=== PATIENT | female | born 1970 | race Caucasian/White ===

== ENCOUNTER 2019-02-23 02:27 | Inpatient (IN) | payer MEDICAID ==
[~2019-02-23] VITALS: Ht 162.6 cm; Wt 51.7 kg
[2019-02-23 02:32] VITALS: BP 132/74
--- NOTE | 2019-02-23 02:48 | NUR ---
48/F PRESENTS TO ED, C/O RASH ON DORSAL ASPECT OF BL HANDS, X2 WEEKS. PT REPORTS FATIGUE, INSOMNIA AND DIZZINESS. REPORTS RESOLVED ITCHING. STATED SHE WAS GARDENING WITH GLOVES ON 2 DAYS PRIOR TO ONSET OF S/S. REPORTS RESOLVED ITCHING. AOX4, GCS 15, SKIN NORMAL WARM AND DRY, RR EVEN AND UNLABORED.
[2019-02-23 03:12] LABS: BASOPHILS # (AUTO) 0.1 K/uL (0.00-0.22); BASOPHILS % (AUTO) 1.9 % (0.0-2.0); EOSINOPHILS # (AUTO) 0.1 K/uL (0-0.4); EOSINOPHILS % (AUTO) 1.9 % (0.0-4.0); HEMATOCRIT 21.1 % (36-48); LYMPHOCYTES # (AUTO) 1.8 K/uL (2.5-16.5); LYMPHOCYTES % (AUTO) 30.7 % (20.5-51.1); MEAN CORPUSCULAR HEMOGLOBIN 15 pg (27-31); MEAN CORPUSCULAR HGB CONC 30 g/dL (33-37); MONOCYTES # (AUTO) 0.5 K/uL (0.8-1.0); MONOCYTES % (AUTO) 8.9 % (1.7-9.3); NEUTROPHILS # (AUTO) 3.4 K/uL (1.8-7.7); NEUTROPHILS % (AUTO) 56.6 % (42.2-75.2); PLATELET COUNT (AUTO) 391 K/uL (140-450); RED BLOOD CELL COUNT(AUTO) 4.26 MIL/uL (4.20-5.40); RED CELL DISTRIBUTION WIDTH 19.4 % (11.6-13.7)
[2019-02-23 03:21] LABS: ANION GAP 9.1 (8-16); CARBON DIOXIDE 28.4 mmol/L (21-32); CREATININE 0.7 mg/dL (0.6-1.3); POTASSIUM 3.5 mmol/L (3.5-5.1)
[2019-02-23 03:27] LABS: ALBUMIN 3.3 g/dL (3.4-5.0); TOTAL BILIRUBIN 0.6 mg/dL (0.0-1.0)
[2019-02-23 03:36] LABS: HEMOGLOBIN 6.3 g/dL (12.0-16.0); MEAN CORPUSCULAR VOLUME 49.6 fL (80-94)
[2019-02-23 03:48] LABS: APPEARANCE,URINE CLEAR (CLEAR); BILIRUBIN,URINE NEGATIVE (NEGATIVE); BLOOD, URINE NEGATIVE (NEGATIVE); COLOR,URINE YELLOW (YELLOW); LEUKOCYTE ESTERASE ,URINE NEGATIVE (NEGATIVE); NITRITE, URINE NEGATIVE (NEGATIVE); UGLUCOSE NEGATIVE (NEGATIVE)
--- NOTE | 2019-02-23 03:50 | NUR ---
PT LAYING IN BED, RR EVEN AND UNLABORED. ALL NEEDS MET AT THIS TIME.
[2019-02-23 03:56] LABS: BARBITURATE, URINE NEG. ng/ml (NEG <=200); BENZODIAZEPINE, URINE NEG. ng/mL (NEG <=200); CANNABINOID, URINE POS. ng/mL (NEG <=50); COCAINE, URINE NEG. ng/mL (NEG <=300); OPIATE, URINE NEG. ng/mL (NEG <=2000); PHENCYCLIDINE SCREEN,URINE NEG. ng/mL (NEG <=25)
[2019-02-23 03:59] LABS: PROTHROMBIN TIME 10.6 secs (10.8-13.4)
--- NOTE | 2019-02-23 04:00 | NUR ---
ATTEMPTED TO INSERT IV, UNSUCCESSFUL AFTER 3 ATTEMPTS, NOTIFIED PIPING DESIGN SPECIALIST.
[2019-02-23 04:02] LABS: RBC,URINE 0-5 /HPF (0-5); WBC,URINE 0-5 /HPF (0-5)
--- NOTE | 2019-02-23 04:40 | NUR ---
Patient will be admitted to care of DR. MEHTA. Admited to TELE. Will go to room 120B. Belongings list completed. Report to ANDRESSA DOBSON.
[2019-02-23 04:45] VITALS: BP 130/83
--- NOTE | 2019-02-23 04:45 | NUR ---
RECEIVED PT FROM ED NURSE AT BEDSIDE. PT IN STABLE CONDITION. AAOX4. AMBULATE TO BED. NO S/S OF SOB OR ANY RESPIRATORY DISTRESS NOTED. SKIN INTACT, WARM AND DRY. RASH ON BOTH HAND DORSAL NOTED. MRSA COLLECTED. IV LAC 20G. SITE INTACT. HGB LEVEL 6.3, HCT LEVEL 21.1. CONSENT SIGNED AT ED, WAITING ORDER FOR BLOOD. ORIENT ROOM TO PT. BED IN LOW POSITION. CALL DAVILA IN REACH. WILL CONTINUE TO MONITOR.
[2019-02-23] MEDS ORDERED: ZOLPIDEM 5 MG TAB PO PRN (04:55)
[2019-02-23] MEDS ORDERED: LORazepam 2 MG/ML VIAL IM/IVP PRN (04:55)
[2019-02-23] MEDS ORDERED: HYDROcodone/APAP 5/325 MG 1 TAB TAB PO PRN (04:55)
[2019-02-23] MEDS ORDERED: ACETAMINOPHEN 325 MG TAB PO PRN (04:55)
[2019-02-23] MEDS ORDERED: ONDANSETRON 4 MG/2 ML VIAL IM/IVP PRN (04:55)
[2019-02-23] MEDS ORDERED: DOCUSATE SODIUM 100 MG GELCAP PO PRN (04:55)
[2019-02-23] MEDS: NACL 0.9% 1,000 ML IV SCH (05:34)
--- NOTE | 2019-02-23 05:37 | NUR ---
SOLU MEDROL GIVEN IVP. PT TOLERATED WELL.
[2019-02-23] MEDS ORDERED: methylPREDNISolone SS 125 MG/2 ML VIAL IVP SCH (06:00)
--- NOTE | 2019-02-23 06:10 | NUR ---
PRIME THE Y TUBING, BLOOD BANK CALLED TO INFORM US BLOOD IS READY. PICKED UP BLOOD.
--- NOTE | 2019-02-23 06:20 | NUR ---
STARTED BLOOD TRANSFUSION. INITIAL VITAL SIGN TAKEN. 0/10 PAIN. PT TOLERATED WELL. WILL CONTINUE TO MONITOR.
[2019-02-23 06:30] LABS: MAGNESIUM 1.9 mg/dL (1.8-2.4); PHOSPHORUS 2.9 mg/dL (2.5-4.9); THYROID STIMULATING HORMONE 2.42 uIU/mL (0.34-3.74)
--- NOTE | 2019-02-23 06:45 | NUR ---
NO ADVERSE REACTION TO BLOOD. VS STABLE. BLOOD RATE INCREASED TO 100MLS/HR. WILL CONTINUE TO MONITOR.
--- NOTE | 2019-02-23 07:28 | NUR ---
BEDSIDE REPORT GIVEN TO DAY SHIFT NURSE. PT IN STABLE CONDITION.
--- NOTE | 2019-02-23 07:29 | NUR ---
RECEIVED REPORT AT BEDSIDE FROM CROSSCUTTER ROLLED GLASS NURSE RAMÍREZ FOR CONTINUITY OF CARE. PT IN STABLE CONDITION. RESPIRATIONS EVEN AND UNLABORED, ROOM AIR. IV INTACT AND PATENT. 1 UNIT BLOOD TRANSFUSING AT THIS TIME, STARTED AT 0620 PER CROSSCUTTER ROLLED GLASS NURSE RAMÍREZ. SAFETY MEASURES IN PLACE. BED IN LOW POSITION. CALL LIGHT AT BEDSIDE. WILL CONTINUE TO MONITOR.
--- NOTE | 2019-02-23 07:40 | NUR ---
ASSISTED PT TO RESTROOM TO URINATE. PT TOLERATED WELL. NO INTERRUPTION OF BLOOD TRANSFUSING. PT IN STABLE CONDITION.
[2019-02-23 08:00] VITALS: BP 140/91
--- NOTE | 2019-02-23 08:21 | NUR ---
PATIENT HAS BEEN SCREENED AND CATEGORIZED HIGH NUTRITION RISK. PATIENT WILL BE SEEN WITHIN 1-2 DAYS OF ADMISSION. 02/23/19-02/24/[address]
[2019-02-23] MEDS ORDERED: SODIUM FERRIC GLUCONATE 125 MG in NACL 0.9% 100 ML IV SCH (09:00)
--- NOTE | 2019-02-23 09:00 | NUR ---
SODIUM FERRIC GLUCONATE 125MG HELD DUE TO BLOOD TRANSFUSING AT THIS TIME.
--- NOTE | 2019-02-23 09:45 | NUR ---
1ST UNIT PACKED RBC COMPLETED AT 0945. PT IN STABLE CONDITION.
--- NOTE | 2019-02-23 10:50 | NUR ---
2ND UNIT BLOOD STARTED AT 1050. PT IN STABLE CONDITION.
--- NOTE | 2019-02-23 11:05 | NUR ---
NO ADVERSE REACTION TO BLOOD. VS STABLE. BLOOD RATE INCREASED TO 100MLS/HR. WILL CONTINUE TO MONITOR.
[2019-02-23 12:00] VITALS: BP 128/80
[2019-02-23] MEDS ORDERED: fentaNYL 0.05 MG/ML VIAL ONE (12:24)
[2019-02-23] MEDS ORDERED: MIDAZOLAM 2 MG/2 ML VIAL ONE (12:24)
[2019-02-23] MEDS ORDERED: diphenhydrAMINE 50 MG/ML VIAL ONE (12:25)
--- NOTE | 2019-02-23 13:25 | NUR ---
OFF UNIT FOR EGD PROCEDURE. BLOOD TRANSFUSING AT THIS TIME. PT IN STABLE CONDITION.
[2019-02-23] MEDS: MIDAZOLAM 2 MG/2 ML VIAL IVP SCH ×2 (13:56→15:15)
[2019-02-23] MEDS: fentaNYL 0.05 MG/ML VIAL IVP SCH ×2 (13:57→15:15)
--- NOTE | 2019-02-23 14:00 | NUR ---
02/23/19 RD INITIAL ASSESSMENT COMPLETED PLEASE REFER TO NUTRITION ASSESSMENT UNDER CARE ACTIVITY FOR ESTIMATED NUTRITIONAL NEEDS. 1. CONTINUE NPO MEDICALLY NECESSARY 2. RECOMMEND REGULAR DIET WITH FOOD TEXTURE SUGGESTED BY SWALLOW EVALUATION WHEN PT IS STABLE TO RECEIVE NUTRITION. 3. RECOMMEND ENSURE BID 4. INCREASE CALORIES AND PROTEIN DIET EDUCATION WAS PROVIDED. 5. RD TO FOLLOW-UP 3-5 DAYS, MODERATE RISK PEBBLES [address]
--- NOTE | 2019-02-23 14:35 | NUR ---
PPT BACK ON UNIT AFTER EGD PROCEDURE. PT IN STABLE CONDITION. VITALS: B/P 113/71 P 83 97% T 97.6 R 18
[2019-02-23 16:00] VITALS: BP 134/79
[2019-02-23 16:39] LABS: BASOPHILS % (AUTO) 1.3 % (0.0-2.0); HEMATOCRIT 31.9 % (36-48); HEMOGLOBIN 9.7 g/dL (12.0-16.0); LYMPHOCYTES # (AUTO) 0.8 K/uL (2.5-16.5); LYMPHOCYTES % (AUTO) 23.4 % (20.5-51.1); MEAN CORPUSCULAR HEMOGLOBIN 18 pg (27-31); MEAN CORPUSCULAR HGB CONC 30 g/dL (33-37); MEAN CORPUSCULAR VOLUME 58.1 fL (80-94); MONOCYTES # (AUTO) 0.1 K/uL (0.8-1.0); MONOCYTES % (AUTO) 2.1 % (1.7-9.3); NEUTROPHILS # (AUTO) 2.6 K/uL (1.8-7.7); NEUTROPHILS % (AUTO) 73.2 % (42.2-75.2); PLATELET COUNT (AUTO) 407 K/uL (140-450); RED BLOOD CELL COUNT(AUTO) 5.49 MIL/uL (4.20-5.40); RED CELL DISTRIBUTION WIDTH 30.1 % (11.6-13.7); WHITE BLOOD COUNT (AUTO) 3.5 K/uL (4.8-10.8)
--- NOTE | 2019-02-23 17:00 | NUR ---
PT SLEEPING IN STABLE CONDITION. RESPIRATIONS EVEN AND UNLABORED. BED IN LOW POSITION. BED ALARM ON. WILL CONTINUE TO MONITOR.
--- NOTE | 2019-02-23 18:30 | NUR ---
PT DROWSY AT THIS TIME. PT VERBALIZED NOT BEING ABLE TO STAND FOR BARIUM TEST AT THIS TIME. DR. AL AWARE STATING TO HAVE TEST PERFORMED FIRST THING IN THE MORNING.
--- NOTE | 2019-02-23 19:17 | NUR ---
* ST NOTE * Pt seen at bedside w/partner & nsg present. Pt asleep upon entering room. Upon awakening, pt alert and cooperative, but lethargic, reporting no c/o pain at this time. Pt consenting to evaluation w/partner present. Bedside dysphagia and oral mechanism exams completed. See evaluation report for further details. Pt tolerating 2/2 alternating PO trials of puree apple sauce 1-3 CCs at a time via a spoon, 4/4 alternating PO trials of thin liquid apple juice via a straw, as well as 2/2 alternating PO trials of mech-soft chopped fruit via a spoon, all w/o s/s of aspiration or choking. Pt presenting with fear during PO intake because pt s/p esophagram. Pt and caregiver/partner education completed re: aspiration precautions and safe swallow compensatory strategies pt and caregivers could utilize to aid pt w/swallow function, w/pt and caregiver/partner verbalizing understanding and agreement w/clinician's recommendations. It is thus recommended pt's PO diet consistency be modified to mechanical soft-GROUND textures w/thin liquids for all meals, w/strict aspiration precautions in place. No further ST follow up recommended at this time. Pt, caregiver/partner, and Nsg Angeles education completed re: results of evaluation; benefits of abiding by aspiration precautions and recommended PO diet consistency; and prognosis for improvement; with pt, caregiver/partner & Nsg Angeles verbalizing understanding and agreement w/clinician's recommendations. Recommend: - PO DIET CONSISTENCY OF MECHANICAL SOFT-GROUND TEXTURES W/THIN LIQUIDS for all meals - WHOLE PILL MEDICATION ADMINISTRATION OR CRUSHED IN GROUND OR THIN LIQUID TEXTURES - Maintain STRICT ASPIRATION PRECAUTIONS DURING PT'S PO INTAKE - CUE/REMIND PT TO SIT UP AT 80-90 DEGREE ANGLE DURING PO INTAKE; EAT/DRINK SLOWLY; ALTERNATE BTWN SOLIDS & LIQUIDS; AND TAKE SMALL BITES/SIPS - Pt's PO diet consistency may be upgraded to mechanical soft textures w/thin liquids as tolerated No further ST follow up recommended at this time. NOMS Level 3
--- NOTE | 2019-02-23 19:25 | NUR ---
GAVE REPORT TO DARRYL DELINQUENT TAX COLLECTOR NURSE FOR CONTINUITY OF CARE. PT IN STABLE CONDITION.
--- NOTE | 2019-02-23 19:25 | NUR ---
RECEIVED REPORT FROM BRO RN DAYSHIFT NURSE AT BEDSIDE FOR CONTINUITY OF CARE, PT IN STABLE CONDITION.
[2019-02-23] MEDS: SODIUM FERRIC GLUCONATE 125 MG in NACL 0.9% 100 ML IV SCH (19:52)
[2019-02-23 20:00] VITALS: BP 134/86
[2019-02-23] MEDS: PANTOPRAZOLE 40 MG INJ VIAL IVP SCH (20:01)
[2019-02-23] MEDS: MORPHINE SULFATE 2 MG/ML SYR IVP PRN (20:02)
--- NOTE | 2019-02-23 20:30 | NUR ---
PT IN BED WITH HOB UP 45%. PT IS AOX4 AND HAS C/O OF 7/10 PAIN IN NECK AND THROAT. PT GIVEN MORPHINE IVP FOR SEVERE PAIN. PT ALSO GIVEN DUE MEDS OF PROTONIX IVP. PT REMINDED THAT OCCULT BLOOD TEST IS PENDING AND THAT WHEN SHE CAN PROVIDED A SAMPLE OF STOOL WE CAN TEST FOR BLOOD IN STOOL. MEDICATION EDUCATION PROVIDED FOR PT AND FAMILY IS AT BEDSIDE. WILL CONTINUE TO MONITOR FOR PAIN RELIEF.
--- NOTE | 2019-02-23 22:00 | NUR ---
PT IN BED SLEEPING, ASPIRATION PRECAUTIONS IN PLACE. NO S/S OF PAIN OR DISTRESS NOTED.
[2019-02-24] VITALS: BP 135/84
[2019-02-24] MEDS: MORPHINE SULFATE 2 MG/ML SYR IVP PRN ×3 (00:41→14:50)
--- NOTE | 2019-02-24 00:45 | NUR ---
PT IN BED BUT AROUSABLE TO NAME, PT ASSISTED TO TOILET REQUESTED. PT ALSO SAID THAT HER PAIN HAS RETURNED AND IT IS 7/10 IN HER NECK. PT GIVEN MORPHINE IVP /PRN ORDERED.
--- NOTE | 2019-02-24 01:30 | NUR ---
PT IN BED SLEEPING. NO S/S OF PAIN OR DISCOMFORT NOTED. BED LOW AND SIDE RAILS UP X2. WILL CONTINUE TO MONITOR FOR SAFETY AND PAIN RELIEF.
[2019-02-24 04:00] VITALS: BP 125/81
--- NOTE | 2019-02-24 04:15 | NUR ---
PT IN BED SLEEPING V/S A FOLLOWS T 97.8 P 72 R 18 B/P 125/81 02 100% ON ROOM AIR.
[2019-02-24] MEDS: NACL 0.9% 1,000 ML IV SCH (04:51)
[2019-02-24 06:49] LABS: ANION GAP 9.7 (8-16); CARBON DIOXIDE 28.6 mmol/L (21-32); CREATININE 0.7 mg/dL (0.6-1.3); POTASSIUM 3.3 mmol/L (3.5-5.1)
[2019-02-24 06:55] LABS: MAGNESIUM 2.2 mg/dL (1.8-2.4); PHOSPHORUS 3.3 mg/dL (2.5-4.9)
--- NOTE | 2019-02-24 07:23 | NUR ---
PT ASLEEP ION BED WITH SIDE RAILS UP AND BED IN LOW POSITION. CARE ENDORSED TO NEO QUINN RN DAY SHIFT NURSE AT BEDSIDE PT IN STABLE CONDITION.
--- NOTE | 2019-02-24 07:25 | NUR ---
RECEIVED BEDSIDE REPORT FROM ANDRESSA ANDREWS. PT STABLE, AWAKE, ALERT AND ORIENTED X4. NO SIGNS OF DISTRESS NOTED. NO REDNESS, SWELLING, OR INFLAMMATION NOTED ON IV SITE. DENIES PAIN OR SOB. CALL DAVILA WITHIN REACH. BED IN LOWEST POSITION. SAFETY MEASURES IN PLACE. PLAN OF CARE REVIEWED.
[2019-02-24 07:33] LABS: BASOPHILS % (AUTO) 0.5 % (0.0-2.0); EOSINOPHILS # (AUTO) 0.1 K/uL (0-0.4); EOSINOPHILS % (AUTO) 0.8 % (0.0-4.0); HEMATOCRIT 32.2 % (36-48); HEMOGLOBIN 9.7 g/dL (12.0-16.0); LYMPHOCYTES # (AUTO) 2.2 K/uL (2.5-16.5); LYMPHOCYTES % (AUTO) 23.9 % (20.5-51.1); MEAN CORPUSCULAR HEMOGLOBIN 18 pg (27-31); MEAN CORPUSCULAR HGB CONC 30 g/dL (33-37); MONOCYTES # (AUTO) 0.7 K/uL (0.8-1.0); NEUTROPHILS # (AUTO) 6.1 K/uL (1.8-7.7); NEUTROPHILS % (AUTO) 66.8 % (42.2-75.2); PLATELET COUNT (AUTO) 393 K/uL (140-450); RED BLOOD CELL COUNT(AUTO) 5.55 MIL/uL (4.20-5.40); RED CELL DISTRIBUTION WIDTH 30.8 % (11.6-13.7); WHITE BLOOD COUNT (AUTO) 9.2 K/uL (4.8-10.8)
[2019-02-24 08:00] VITALS: BP 129/76
--- NOTE | 2019-02-24 08:02 | NUR ---
MADE DR LOOMIS AWARE OF K+ 3.3. WILL WAIT FOR NEW ORDERS.
[2019-02-24] MEDS: SODIUM FERRIC GLUCONATE 125 MG in NACL 0.9% 100 ML IV SCH ×3 (09:22→17:53)
[2019-02-24] MEDS: PANTOPRAZOLE 40 MG INJ VIAL IVP SCH ×2 (09:23→20:15)
--- NOTE | 2019-02-24 09:36 | NUR ---
ADMINISTERED SCHEDULED MEDICATIONS AND PRN MORPHINE FOR 7/10 HEAD ACHE. WILL CONTINUE TO MONITOR.
[2019-02-24] MEDS ORDERED: KCL 20 MEQ/WATER INJ PREMIX 200 ML IV ONE (10:30)
--- NOTE | 2019-02-24 11:02 | NUR ---
MECHANICAL SOFT DIET EDUCATION WAS PROVIDED TO THE PT. AN EDUCATION HANDOUT WAS LEFT TO THE PT, AND PT ACCEPTED.
--- NOTE | 2019-02-24 11:35 | NUR ---
ADMINISTERED SCHEDULED MEDICATION, PT TOLERATED WELL. NO OTHER NEEDS AT THIS TIME.
[2019-02-24 12:00] VITALS: BP 123/74
--- NOTE | 2019-02-24 12:10 | NUR ---
MADE DR MURPHY AWARE OF PT WANTING TO EAT. PER DR MURPHY, PT HAS TO WAIT UNTIL DR AL COMES TO EVALUATE RESULTS OF BARRIUM SWALLOW. MADE PT AWARE.
[2019-02-24 13:07] LABS: FOLIC ACID 6.3 ng/mL (>3.0)
--- NOTE | 2019-02-24 13:28 | NUR ---
ADMINISTERED SCHEDULED MEDICATION, PT TOLERATED WELL. NO OTHER NEEDS AT THIS TIME.
--- NOTE | 2019-02-24 13:55 | NUR ---
I MET PATIENT AT BEDSIDE AND EXPLAINED TO PATIENT THAT I WILL OBTAIN AND VERIFY INFORMATION WITH HER, AND SHE AGREED. PATIENT LIVES IN [place] [employer] WITH HER TWO SONS AGES 11YEARS OLD AND 24 YEARS OLD. PATIENT IS INDEPENDENT WITH ADLS AND DRIVES A CAR AND NO PROBLEM WITH TRANSPORTATION. PATIENT HAS NO MAINTENANCE MEDICATIONS. PATIENT WAS NOT RECEIVING ANY HOME HEALTH SERVICES PRIOR TO HOSPITALIZATION AND WAS NOT USING ANY DME AT HOME. PATIENT ADMITTED HISTORY OF ALCOHOL AND SUBSTANCE ABUSE.PATIENT ALSO VERBALIZED THAT SHE WILL BE HOMELESS SOON. PROVIDED PATIENT RESOURCES FOR LOW COST HOUSING, HOMELESS RESOURCES, ALCOHOL AND SUBSTANCE ABUSE PACKET PER PATIENT REQUEST. PATIENT HAS NO PCP AT THIS TIME AND INSTRUCTED HER TO FIND ONE AND TO MAKE A FOLLOW UP APPOINTMENT AFTER DISCHARGE. INSTRUCTED PATIENT TO BRING ALL DISCHARGE INFORMATION AND INSTRUCTIONS UPON VISIT TO PCP, VERBALIZED UNDERSTANDING. PATIENT HAS NO ADVANCE DIRECTIVE AND REFUSED TO HAVE ONE AT THIS TIME. EMPHASIZED TO PATIENT TO LET US KNOW IF NEEDED HELP OR IF THERE IS ANY QUESTIONS AND CONCERNS WHILE SHE IS HERE IN THE HOSPITAL, VERBALIZED UNDERSTANDING.
--- NOTE | 2019-02-24 14:54 | NUR ---
ADMINISTERED PRN MORPHINE FOR 10/10 HEADACHE. PT TOLERATED WELL.
[2019-02-24 16:00] VITALS: BP 130/83
--- NOTE | 2019-02-24 16:13 | NUR ---
2ND BAG OF POTASSIUM CHLORIDE HUNG PER MD ORDER. WILL CONTINUE TO MONITOR.
[2019-02-24] MEDS ORDERED: traMADol 50 MG TAB PO PRN (17:00)
[2019-02-24] MEDS: SENNA 8.6 MG TAB PO SCH (17:54)
[2019-02-24] MEDS: LACTULOSE 20 GM/30 ML UDC PO SCH ×2 (17:54→20:18)
--- NOTE | 2019-02-24 18:03 | NUR ---
ADMINISTERED SCHEDULED MEDICATIONS, PT TOLERATED WELL. NO OTHER NEEDS AT THIS TIME.
--- NOTE | 2019-02-24 19:10 | NUR ---
ENDORSED PT TO ANDRESSA ANDREWS FOR CONTINUITY OF CARE. PT STABLE.
--- NOTE | 2019-02-24 19:20 | NUR ---
RECEIVED REPORT FORM NEO QUINN RN DAYSHIFT NURSE AT BEDSIDE FOR CONTINUITY OF CARE, PT INSTABLE CONDITION.
[2019-02-24 20:00] VITALS: BP 117/72
--- NOTE | 2019-02-24 20:25 | NUR ---
PT IN BED WITH SIDE RAILS UP X2 AND N/S RUNNING AT 20 TO KVO. PT C/O OF SEVERE PAIN IN NECK AND THROAT AREA. PT GIVEN PO/PRN ULTRAM . IV SITE INTACT WITH N/S RUNNING AT 50. AND CALL DAVILA IN REACH.
[2019-02-24] MEDS ORDERED: AMITRIPTYLINE 10 MG TAB PO SCH (21:00)
--- NOTE | 2019-02-24 21:00 | NUR ---
PT GIVEN ORDERED PROTONIX 40MG VIAL IVP. PT REFUSED ORDERED LACTULOSE AND ELAVIL, MEDICATION EDUCATION PROVIDED WELL RISKS AND BENEFITS OF THE MEDICATION. PT CONTINUED TO REFUSE THE ORDERED MEDICATION.
--- NOTE | 2019-02-24 23:00 | NUR ---
PT HAD A MODERATE LOOSE BM AND STOOL SAMPLE WAS COLLECTED FOR OCCULT BLOOD AND SENT TO LAB.
[2019-02-25] VITALS: BP 125/73
--- NOTE | 2019-02-25 00:45 | NUR ---
PT IN LOW BED WITH SIDE RAILS UP X2 AND V/S FOLLOWS T97.4 P 70 R 20 B/P 125/73 02 99% ON ROOM AIR.
--- NOTE | 2019-02-25 02:15 | NUR ---
PT IN BED SLEEPING BUT AROUSABLE TO NAME. PT HAD STANDBY ASSIST TO ESCORT PT TO THE BATHROOM. PT RETURNED TO BED NO S/OS OF PAIN OR DISTRESS NOTED. NO C/O VOICED. BED IN LOW POSITION AND SIDE RAILS UP X2.
[2019-02-25 04:00] VITALS: BP 121/78
[2019-02-25] MEDS: NACL 0.9% 1,000 ML IV SCH (04:51)
--- NOTE | 2019-02-25 07:10 | NUR ---
REPORT GIVEN TO NEO QUINN AT BEDSIDE FOR CONTINUITY OF CARE, PT IN STABLE CONDITION.
[2019-02-25 07:41] LABS: BASOPHILS # (AUTO) 0.1 K/uL (0.00-0.22); BASOPHILS % (AUTO) 1.2 % (0.0-2.0); EOSINOPHILS # (AUTO) 0.1 K/uL (0-0.4); EOSINOPHILS % (AUTO) 1.6 % (0.0-4.0); HEMATOCRIT 32.7 % (36-48); HEMOGLOBIN 9.9 g/dL (12.0-16.0); LYMPHOCYTES # (AUTO) 1.7 K/uL (2.5-16.5); LYMPHOCYTES % (AUTO) 21.2 % (20.5-51.1); MEAN CORPUSCULAR HEMOGLOBIN 18 pg (27-31); MEAN CORPUSCULAR HGB CONC 30 g/dL (33-37); MEAN CORPUSCULAR VOLUME 57.7 fL (80-94); MONOCYTES # (AUTO) 0.7 K/uL (0.8-1.0); MONOCYTES % (AUTO) 8.4 % (1.7-9.3); NEUTROPHILS # (AUTO) 5.3 K/uL (1.8-7.7); NEUTROPHILS % (AUTO) 67.6 % (42.2-75.2); PLATELET COUNT (AUTO) 393 K/uL (140-450); RED BLOOD CELL COUNT(AUTO) 5.66 MIL/uL (4.20-5.40); RED CELL DISTRIBUTION WIDTH 30.8 % (11.6-13.7); WHITE BLOOD COUNT (AUTO) 7.9 K/uL (4.8-10.8)
[2019-02-25 07:46] LABS: ANION GAP 8.8 (8-16); CARBON DIOXIDE 29.7 mmol/L (21-32); CREATININE 0.7 mg/dL (0.6-1.3); POTASSIUM 4.5 mmol/L (3.5-5.1)
[2019-02-25 07:50] LABS: MAGNESIUM 2.1 mg/dL (1.8-2.4); PHOSPHORUS 3.5 mg/dL (2.5-4.9)
[2019-02-25 08:00] VITALS: BP 100/61
--- NOTE | 2019-02-25 08:00 | NUR ---
ENDORSED PT TO RN SITAL FOR CONTINUITY OF CARE. PT STABLE.
[2019-02-25] MEDS ORDERED: DOCU-299 PO ×2 (08:23→12:42)
[2019-02-25] MEDS ORDERED: FERR325E14 PO (08:23)
[2019-02-25] MEDS ORDERED: ASCO500T45 PO (08:23)
[2019-02-25] MEDS ORDERED: PANT40EC PO (08:23)
[2019-02-25] MEDS ORDERED: ASCORBIC ACID 500 MG TAB PO SCH (09:00)
[2019-02-25] MEDS: SENNA 8.6 MG TAB PO SCH (09:00)
[2019-02-25] MEDS: LACTULOSE 20 GM/30 ML UDC PO SCH (09:00)
[2019-02-25] MEDS: SODIUM FERRIC GLUCONATE 125 MG in NACL 0.9% 100 ML IV SCH (09:18)
[2019-02-25] MEDS: PANTOPRAZOLE 40 MG INJ VIAL IVP SCH (09:18)
--- NOTE | 2019-02-25 12:39 | NUR ---
PT GIVEN THE DISCHARGE PAPER AND THE DISCHARGE INSTRUCTION PROVIDED. PT VERBALIZED UNDERSTANDING OF THE TEACHING. DISCONTINUE THE IV SITE. STATES THE FAMILY MEMBER ON THE WAY TO POST PRODUCTION ASSISTANT THE PATIENT. PT EATING HER LUNCH. SIGNED THE DISCHARGE PAPER. PT WAITING FOR THE RIDE AT HER BEDSIDE.
[2019-02-25] MEDS ORDERED: LACT10SO11 PO (13:07)
[2019-02-25] MEDS ORDERED: FOLI1POW MC (13:07)
[2019-02-25] MEDS ORDERED: FAMO40PD4 PO (13:07)
[2019-02-25] MEDS ORDERED: [UNRECOGNIZED DRUG - CODE] PO (13:12)
== END 2019-02-25 13:10 | disposition home or self-care (01) | DRG 241 ==
LOC: MED 02:27 → MTU 04:04
PROVIDERS: ADMIT General Practice; ATTEND General Practice
PROC: 0D758ZZ Dilation of Esophagus, Via Natural or Artificial Opening Endoscopic (ICD-10-PCS; 2019-02-23)
PROC: 30233N1 Transfusion of Nonautologous Red Blood Cells into Peripheral Vein, Percutaneous Approach (ICD-10-PCS; principal; 2019-02-23 12:30)
DX: K29.00 Acute gastritis without bleeding (principal); K22.0 Achalasia of cardia; E44.0 Moderate protein-calorie malnutrition; E83.51 Hypocalcemia; K22.2 Esophageal obstruction; D51.0 Vitamin B12 deficiency anemia due to intrinsic factor deficiency; E87.6 Hypokalemia; F19.10 Other psychoactive substance abuse, uncomplicated; D50.9 Iron deficiency anemia, unspecified; L25.9 Unspecified contact dermatitis, unspecified cause; R62.7 Adult failure to thrive; Z68.1 Body mass index [BMI] 19.9 or less, adult; Z98.891 History of uterine scar from previous surgery; Z90.49 Acquired absence of other specified parts of digestive tract; Z91.19 Patient's noncompliance with other medical treatment and regimen
CPT/HCPCS: 36415; 71045; 74018; 74220; 80048; 80053; 80305; 81001; 82150; 82272; 82607; 82728; 82746; 83036; 83540; 83690; 83735; 83880; 84100; 84134; 84443; 85025; 85045; 85610; 85730; 86886; 86900; 86901; 86920; 87081; 92610; 93005; 93308; 99285; C1727; C9113; J1200; J2250; J2270; J2916; J2930; J3010; J3480; J7030; P9016; Q0092

== ENCOUNTER 2019-03-02 11:30 | Emergency (ER) | payer MEDICAID ==
[~2019-03-02] VITALS: Ht 162.6 cm; Wt 52.8 kg
[~2019-03-02 11:30] MED LIST: ASCO500T45 PO; FERR325E14 PO; FOLI1POW MC; LACT10SO11 PO; [UNRECOGNIZED DRUG - CODE] PO
[2019-03-02 11:35] VITALS: BP 104/67
--- NOTE | 2019-03-02 11:45 | NUR ---
PATIENT AMBULATED TO BED 6.
--- NOTE | 2019-03-02 11:48 | NUR ---
48 Y FEMALE BIB FAMILY C/O GENERALIZED WEAKNESS X3 DAYS. PT REPORTS LETHARGY AND SLEEPING 12 HOURS PER DAY. PT REPORTS NAUSEA YESTERDAY. EXTREMITIES COOL TO TOUCH, CAP REFIL >3 SEC. PT WAS ADMITTED TO HOSPITAL FOR BLOOD TRANSFUSION ON 02/23. VSS AT THIS TIME. AA0X4. BED IS DOWN, LOCKED, BED RAIL X 1, ERMD TO SEE PT. MEDHX:ANEMIA RX:DENIES
--- NOTE | 2019-03-02 11:50 | NUR ---
DR MCHUGH AT BEDSIDE
[2019-03-02 12:14] LABS: BASOPHILS # (AUTO) 0.1 K/uL (0.00-0.22); EOSINOPHILS # (AUTO) 0.2 K/uL (0-0.4); EOSINOPHILS % (AUTO) 3.2 % (0.0-4.0); HEMOGLOBIN 10.6 g/dL (12.0-16.0); LYMPHOCYTES % (AUTO) 30.9 % (20.5-51.1); MEAN CORPUSCULAR HEMOGLOBIN 19 pg (27-31); MEAN CORPUSCULAR HGB CONC 30 g/dL (33-37); MEAN CORPUSCULAR VOLUME 61.7 fL (80-94); MONOCYTES # (AUTO) 0.7 K/uL (0.8-1.0); MONOCYTES % (AUTO) 10.5 % (1.7-9.3); NEUTROPHILS # (AUTO) 3.4 K/uL (1.8-7.7); NEUTROPHILS % (AUTO) 53.4 % (42.2-75.2); PLATELET COUNT (AUTO) 380 K/uL (140-450); RED BLOOD CELL COUNT(AUTO) 5.68 MIL/uL (4.20-5.40); RED CELL DISTRIBUTION WIDTH 35.5 % (11.6-13.7); WHITE BLOOD COUNT (AUTO) 6.3 K/uL (4.8-10.8)
[2019-03-02 12:20] LABS: ANION GAP 9.4 (8-16); CARBON DIOXIDE 29.6 mmol/L (21-32); CREATININE 0.6 mg/dL (0.6-1.3)
[2019-03-02 12:26] LABS: ALBUMIN 3.3 g/dL (3.4-5.0); PROTHROMBIN TIME 9.9 secs (10.8-13.4); TOTAL BILIRUBIN 0.3 mg/dL (0.0-1.0)
--- NOTE | 2019-03-02 12:40 | NUR ---
VSS AT THIS TIME, PT AA0X4, PT SITTING IN BED
[2019-03-02 13:03] VITALS: BP 115/67
--- NOTE | 2019-03-02 13:03 | NUR ---
Patient discharged with v/s stable. Written and verbal after care instructions given and explained. Patient alert, oriented and verbalized understanding of instructions. Ambulatory with steady gait. All questions addressed prior to discharge. ID band removed. Patient advised to follow up with PMD. Rx of [employer] HYDROCORTISONE TOPICAL CREAM given. Patient educated on indication of medication including possible reaction and side effects. Opportunity to ask questions provided and answered.
== END 2019-03-02 13:03 | disposition home or self-care (01) ==
LOC: MED 11:30
DX: K22.2 Esophageal obstruction (principal); L23.9 Allergic contact dermatitis, unspecified cause; D64.9 Anemia, unspecified; Z79.899 Other long term (current) drug therapy
CPT/HCPCS: 36415; 80053; 81002; 81025; 83690; 85025; 85610; 85730; 86886; 86900; 86901; 99283; Q0163

== ENCOUNTER 2019-03-28 12:15 | Emergency (ER) | payer MEDICAID ==
[~2019-03-28] VITALS: Ht 182.9 cm; Wt 52.6 kg
[2019-03-28 12:20] VITALS: BP 111/78
--- NOTE | 2019-03-28 12:20 | NUR ---
48 y female bib c/o vaginal bleeding x 2 weeks. states she changes her pad every hour. pelvic pain described as "cramping" 05/03. pt states she "feels tired and wants to sleep in bed all day." denies uti symptoms. states she had a blood transfusion 1 month ago. -n/v/d. vss at this time. aa0x4. bed is down, locked, bed railx 1, ermd to see pt. pmh- severe anemia
--- NOTE | 2019-03-28 12:21 | NUR ---
pt amb to restroom for urine sample with steady gait
--- NOTE | 2019-03-28 12:39 | NUR ---
dr gonzalez at bedside
--- NOTE | 2019-03-28 13:04 | NUR ---
IV INSERTED AND LABS DRAWN FOR LAB
[2019-03-28 13:13] LABS: BASOPHILS # (AUTO) 0.1 K/uL (0.00-0.22); BASOPHILS % (AUTO) 0.9 % (0.0-2.0); EOSINOPHILS # (AUTO) 0.1 K/uL (0-0.4); EOSINOPHILS % (AUTO) 1.4 % (0.0-4.0); HEMATOCRIT 34.4 % (36-48); HEMOGLOBIN 11.4 g/dL (12.0-16.0); LYMPHOCYTES # (AUTO) 1.2 K/uL (2.5-16.5); LYMPHOCYTES % (AUTO) 19.1 % (20.5-51.1); MEAN CORPUSCULAR HEMOGLOBIN 25 pg (27-31); MEAN CORPUSCULAR HGB CONC 33 g/dL (33-37); MEAN CORPUSCULAR VOLUME 73.7 fL (80-94); MONOCYTES # (AUTO) 0.7 K/uL (0.8-1.0); MONOCYTES % (AUTO) 10.7 % (1.7-9.3); NEUTROPHILS # (AUTO) 4.4 K/uL (1.8-7.7); NEUTROPHILS % (AUTO) 67.9 % (42.2-75.2); PLATELET COUNT (AUTO) 155 K/uL (140-450); RED BLOOD CELL COUNT(AUTO) 4.67 MIL/uL (4.20-5.40); RED CELL DISTRIBUTION WIDTH 40.7 % (11.6-13.7); WHITE BLOOD COUNT (AUTO) 6.4 K/uL (4.8-10.8)
[2019-03-28 13:20] LABS: ANION GAP 11.5 (8-16); CARBON DIOXIDE 26.6 mmol/L (21-32); CREATININE 0.6 mg/dL (0.6-1.3); POTASSIUM 3.1 mmol/L (3.5-5.1)
[2019-03-28 13:34] LABS: ALBUMIN 3.2 g/dL (3.4-5.0); THYROID STIMULATING HORMONE 0.4 uIU/mL (0.34-3.74); TOTAL BILIRUBIN 0.6 mg/dL (0.0-1.0)
[2019-03-28 14:16] VITALS: BP 119/80
--- NOTE | 2019-03-28 14:16 | NUR ---
Patient discharged with v/s stable. Written and verbal after care instructions given and explained. Patient verbalized understanding. Ambulatory with steady gait. All questions addressed prior to discharge. Advised to follow up with PMD. PT INSTRUCTED TO TAKE HER IRON PILLS AT HOME.
== END 2019-03-28 14:16 | disposition home or self-care (01) ==
LOC: MED 12:15
DX: N92.4 Excessive bleeding in the premenopausal period (principal); D64.9 Anemia, unspecified; Z79.899 Other long term (current) drug therapy
CPT/HCPCS: 36415; 76856; 80053; 81002; 81025; 83690; 84443; 85025; 86870; 86886; 86900; 86901; 93005; 99284; Q0092

== ENCOUNTER 2020-05-20 22:12 | Emergency (ER) | payer MEDICAID, OTHER ==
[~2020-05-20] VITALS: Ht 162.6 cm; Wt 54.4 kg
[~2020-05-20 22:12] MED LIST changes: -ASCO500T45 PO; +ASCO500T95 PO
[2020-05-20 22:20] VITALS: BP 160/97
[2020-05-20 23:08] VITALS: BP 160/97
== END 2020-05-20 23:08 | disposition home or self-care (01) ==
LOC: MED 22:12
DX: R21 Rash and other nonspecific skin eruption (principal); D64.9 Anemia, unspecified; R09.01 Asphyxia; Z79.899 Other long term (current) drug therapy
CPT/HCPCS: 99283

== ENCOUNTER 2023-06-18 18:19 | Emergency (ER) | payer OTHER ==
[~2023-06-18] VITALS: Ht 162.6 cm; Wt 59.0 kg
[2023-06-18 18:55] VITALS: BP 106/64; PULSE 97; RESP 18; TEMP 97.5; O2SAT 100
[2023-06-18] MEDS ORDERED: KETOROLAC 30 MG/ML VIAL IM ONE (19:45)
[2023-06-18 20:05] LABS: BASOPHILS % (AUTO) 1.2 % (0.0-2.0); EOSINOPHILS # (AUTO) 0.2 K/uL (0-0.4); EOSINOPHILS % (AUTO) 3.9 % (0.0-4.0); HEMATOCRIT 35.4 % (36-48); HEMOGLOBIN 11.4 g/dL (12.0-16.0); LYMPHOCYTES # (AUTO) 1.3 K/uL (2.5-16.5); LYMPHOCYTES % (AUTO) 30.5 % (20.5-51.1); MEAN CORPUSCULAR HEMOGLOBIN 24 pg (27-31); MEAN CORPUSCULAR HGB CONC 32 g/dL (33-37); MEAN CORPUSCULAR VOLUME 75.3 fL (80-94); MONOCYTES # (AUTO) 0.8 K/uL (0.8-1.0); NEUTROPHILS % (AUTO) 46.4 % (42.2-75.2); PLATELET COUNT (AUTO) 302 K/uL (140-450); RED CELL DISTRIBUTION WIDTH 21.3 % (11.6-13.7); WHITE BLOOD COUNT (AUTO) 4.3 K/uL (4.8-10.8)
[2023-06-18 20:22] LABS: ALBUMIN 3.6 g/dL (3.4-5.0); ANION GAP 14.6 (8-16); CALCIUM 9.2 mg/dL (8.5-10.1); CARBON DIOXIDE 27.5 mmol/L (21-32); CREATININE 0.7 mg/dL (0.6-1.3); POTASSIUM 4.1 mmol/L (3.5-5.1); TOTAL BILIRUBIN 0.5 mg/dL (0.0-1.0); TOTAL PROTEIN, SERUM 7.8 g/dL (6.4-8.2)
[2023-06-19] MEDS ORDERED: ONDANSETRON 4 MG/2 ML VIAL IVP ONE (00:50)
[2023-06-19] MEDS ORDERED: MORPHINE SULFATE 4 MG/ML SYR IVP ONE (00:50)
[2023-06-19 01:25] VITALS: BP 120/69; PULSE 81; RESP 17; O2SAT 98
[2023-06-19] MEDS ORDERED: CYCL-711 PO (01:38)
[2023-06-19] MEDS ORDERED: IBUP-2213 PO (01:38)
[2023-06-19] MEDS ORDERED: ACET-10509 PO (01:38)
[2023-06-19] MEDS ORDERED: LID5T TP (01:38)
== END 2023-06-19 01:45 | disposition home or self-care (01) ==
LOC: MED 18:19
DX: M54.50 Low back pain, unspecified (principal); R10.84 Generalized abdominal pain; D64.9 Anemia, unspecified; Z90.49 Acquired absence of other specified parts of digestive tract; Z98.890 Other specified postprocedural states; Z79.899 Other long term (current) drug therapy
CPT/HCPCS: 36415; 74177; 80053; 81002; 81025; 83690; 85025; 96372; 96374; 96375; 99285; J1885; J2270; J2405; Q9967